=== PATIENT | female | born 1985 | race Hispanic/Latino ===

== ENCOUNTER 2017-04-18 00:16 | Emergency (ER) | payer OTHER ==
[2017-04-18 00:53] LABS: Basophils % (Auto) 0.5 % (0.0-1.8); Eosinophils % (Auto) 3.9 % (0.0-4.3); Hematocrit 42.9 % (30.3-42.9); Hemoglobin 14.3 gm/dl (10.1-14.3); Mean Corpuscular HGB Conc 33 % (30-34); Mean Corpuscular Hemoglobin 29 pg (28-32); Mean Corpuscular Volume 87 fl (79-97); Platelet Count 304 K/mm3 (140-440); Red Blood Count 4.95 M/mm3 (3.65-5.03); Red Cell Distribution Width 15.9 % (13.2-15.2); White Blood Count 9.1 K/mm3 (4.5-11.0)
[2017-04-18 01:12] LABS: Anion Gap 19 mmol/L; BUN/Creatinine Ratio 12; Blood Urea Nitrogen 7 mg/dL (7-17); Calcium 8.8 mg/dL (8.4-10.2); Carbon Dioxide 21 mmol/L (22-30); Chloride 103.9 mmol/L (98-107); Glucose 98 mg/dL (65-100); Potassium 3.8 mmol/L (3.6-5.0); Sodium 140 mmol/L (137-145)
[2017-04-18 01:21] LABS: Urine Drugs of Abuse Note Disclamer
[2017-04-18 01:41] LABS: Bacteria,Urine 1+ /HPF (Negative); Bilirubin,Urine NEG (Negative); Blood,Urine NEG (Negative); Ketones,Urine NEG (Negative); Leukocyte Esterase,Urine NEG (Negative); Mucus,Urine FEW /HPF; Nitrite,Urine NEG (Negative); Protein,Urine <15 mg/dL mg/dL (Negative); Urobilinogen,Urine < 2.0 mg/dL (<2.0)
--- NOTE | 2017-04-18 08:18 | Emergency Department Report ---
ED General Adult HPI - General Chief complaint: Psych Stated complaint: MH Time Seen by Provider: 04/18/17 08:17 Source: patient, EMS (ems notes not available at time of chart dictation), RN notes reviewed Mode of arrival: Ambulatory Limitations: No Limitations - History of Present Illness Initial comments: This is a 31-year-old female who is previously unknown to this provider, patient reports a past history of heroin use, patient last used approximately 24 hours ago, and patient is sent to the ER for medical clearance for presumed heroin withdrawal. Patient complains of abdominal cramping, nausea, weakness. To me, patient denies severe headache, neck pain, chest pain, shortness of breath, urinary symptoms. As per triage nurse documentation, patient does endorse passive suicidality, to me, patient endorses that she is not homicidal, that she does not have access to guns or firearms, and she is not having hallucinations. -: Gradual Location: back, abdomen, left, right, upper extremity, lower extremity Severity scale (0 -10): 0 Quality: aching Consistency: constant Improves with: none Worsens with: eating Associated Symptoms: loss of appetite, nausea/vomiting, weakness. denies: confusion, chest pain, cough - Related Data Allergies Allergy/AdvReac Type Severity Reaction Status Date / Time No Known Allergies Allergy Verified 04/18/17 00:24 ED Review of Systems ROS: Stated complaint: MH Other details as noted in HPI Constitutional: malaise Eyes: denies: eye discharge ENT: denies: epistaxis Respiratory: denies: cough Cardiovascular: denies: chest pain Gastrointestinal: abdominal pain, diarrhea Genitourinary: as per HPI. denies: dysuria Musculoskeletal: arthralgia, myalgia Neurological: weakness Psychiatric: anxiety, depression, suicidal thoughts ED Past Medical Hx - Past Medical History Previous Medical History?: Yes Hx Psychiatric Treatment: Yes (depression) - Surgical History Past Surgical History?: Yes Additional Surgical History: c section x3 - Social History Smoking Status: Current Every Day Smoker Substance Use Type: Alcohol, Heroin ED Physical Exam - General Limitations: No Limitations General appearance: alert, anxious, in distress - Head Head exam: Present: atraumatic, normocephalic - Eye Eye exam: Present: normal appearance, EOMI - ENT ENT exam: Present: normal exam, normal orophraynx, mucous membranes moist, normal external ear exam - Neck Neck exam: Present: normal inspection, full ROM - Respiratory Respiratory exam: Present: normal lung sounds bilaterally. Absent: respiratory distress - Cardiovascular Cardiovascular Exam: Present: regular rate, normal rhythm, normal heart sounds. Absent: systolic murmur, diastolic murmur, rubs, gallop - GI/Abdominal GI/Abdominal exam: Present: soft, normal bowel sounds. Absent: distended, tenderness, guarding, rebound, rigid, pulsatile mass - Extremities Exam Extremities exam: Present: normal inspection, full ROM, normal capillary refill. Absent: calf tenderness - Back Exam Back exam: Present: normal inspection, full ROM. Absent: tenderness, CVA tenderness (R), paraspinal tenderness, vertebral tenderness - Neurological Exam Neurological exam: Present: alert, oriented X3, CN II-XII intact, normal gait, other (Extraocular movements intact. Tongue midline. No facial droop. Facial sensation intact to light touch in the V1, V2, V3 distribution bilaterally. 5 and 5 strength in 4 extremities.. Sensation is intact to light touch in 4 extremities.). Absent: motor sensory deficit - Psychiatric Psychiatric exam: Present: anxious. Absent: homicidal ideation - Skin Skin exam: Present: warm, dry, intact, normal color. Absent: rash ED Course Vital Signs 04/18/17 04/18/17 04/18/17 00:19 05:31 08:06 Temperature 97.6 F 9 F L Pulse Rate 69 72 69 Respiratory 18 18 17 Rate Blood Pressure 107/70 93/61 Blood Pressure 114/72 [Left] O2 Sat by Pulse 97 99 96 Oximetry 04/18/17 04/18/17 04/18/17 08:49 09:07 10:58 Temperature 98.7 F Pulse Rate 75 Respiratory 20 Rate Blood Pressure Blood Pressure 107/70 [Left] O2 Sat by Pulse Oximetry - Reevaluation(s) Reevaluation #1: 04/18/17 09:49 Differential diagnosis, including but not limited to: Narcotic dependence, narcotic withdrawal, mood disorder, suicidality, medical clearance for psychiatric placement Assessment and plan: 31-year-old female here for medical clearance for presumed opioid withdrawal. She is afebrile with reassuring vital signs walks with a steady gait, is clinically sober, has a GCS of 15, with an NIH score of 0. Triage nurse documentation indicate some passive suicidality. She is therefore placed on a 1013. For the patient's symptoms, clonidine, Zofran, Reglan have been prescribed. We will contact the crisis team once the patient has been medically For psychiatric placement. Reevaluation #2: 04/18/17 10:39 Serum toxicology study is negative. At this point in time, there does not appear to be any immediate medical contraindication to psychiatric admission, evaluation and consultation. Crisis team is informed. 04/18/17 10:39 ED Medical Decision Making - Lab Data Result diagrams: 04/18/17 00:37 04/18/17 00:37 Critical care attestation.: If time is entered above; I have spent that time in minutes in the direct care of this critically ill patient, excluding procedure time. ED Disposition Clinical Impression: Medical clearance for psychiatric admission Disposition: [id number] PSY HOSP/PSY UNIT Is pt being admited?: No Does the pt Need Aspirin: No Condition: Good Referrals: PRIMARY CARE, [Primary Care Provider] - 3-5 Days
[2017-04-18] MEDS ORDERED: ZOFRAN ODT PO PRN (08:24)
[2017-04-18] MEDS ORDERED: REGLAN PO PRN (08:24)
[2017-04-18] MEDS ORDERED: ATIVAN IM PRN (08:24)
[2017-04-18] MEDS ORDERED: CATAPRES PO PRN (08:24)
[2017-04-18] MEDS ORDERED: TYLENOL PO PRN (08:24)
[2017-04-18 10:58] VITALS: BP 107/70
--- NOTE | 2017-04-18 14:16 | Consultation ---
History of Present Illness - Reason for Consult Consult date: 04/18/17 Reason for consult: Mental Health Evaluation Requesting physician: CECI LUQUE - Chief Complaint Chief complaint: "I need help" - History of Present Psychiatric Illness 31 y.o. white female presenting to [facility] for heroin withdrawals. Today patient is calm and cooperative during the assessment. The patient stated using heroin for the past 4 year with her last use 24 hours ago. She stated that she is tired of her current life and thinks about suicide often. She denies previous suicide attempts. She stated that her mother , lost her kids to [facility], and experienced bad relationships over the past 4 years. She stated these losses has caused her to feel worthless and hopeless. She stated seeing a psychiatrist a year ago and was dx with depression. She stated that she took Prozac. She stated self medicating with heroin to ease her depression. She denies HI's and AVH's. She denies manic episodes. She denies other recreational drug use and alcohol consumption (etoh). Medications and Allergies Allergies Allergy/AdvReac Type Severity Reaction Status Date / Time No Known Allergies Allergy Verified 04/18/17 00:24 Active Meds: Active Medications Acetaminophen (Tylenol) 650 mg PO Q6HR PRN PRN Reason: Pain Last Admin: 04/18/17 10:53 Dose: 650 mg Lorazepam (Ativan) 2 mg IM Q4HR PRN PRN Reason: Agitation Metoclopramide HCl (Reglan) 10 mg PO QID PRN PRN Reason: Nausea Ondansetron HCl (Zofran Odt) 4 mg PO Q6HR PRN PRN Reason: Nausea Past psychiatric history - Past Medical History Past Medical History: No medical history Past Surgical History: No surgical history - past Psychiatric treatment and history Psych: Addictions, Depression psychiatric treatment history: Seen an psychiatrist in the past (outpatient) for depression. Denies a fam psy hx. - Social History Social history: other (Homeless) Mental Status Exam - Vital signs Last Vital Signs Temp 98.7 F 04/18/17 08:49 Pulse 75 04/18/17 10:58 Resp 20 04/18/17 09:07 BP 107/70 04/18/17 10:58 Pulse Ox 96 04/18/17 08:06 - Exam Narrative exam: MSE: Appearance: calm, cooperative Behavior: regular eye contact Speech: regular rate and tone Mood: withdrawn Affect: flat Thought Process: circumstantial Thought Content: denies HI's and AVH's Motor Activity: ambulatory Cognition: A/Ox3 Insight: variable Judgment: variable Results Result Diagrams: 04/18/17 00:37 04/18/17 00:37 Abnormal lab results 04/18/17 04/18/17 04/18/17 Range/Units 00:37 00:37 00:37 RDW 15.9 H (13.2-15.2) % Carbon Dioxide 21 L (22-30) mmol/L Creatinine 0.6 L (0.7-1.2) mg/dL Total Creatine Kinase < 7 L (30-135) units/L Salicylates (2.8-20.0) mg/dL 04/18/17 Range/Units 00:37 RDW (13.2-15.2) % Carbon Dioxide (22-30) mmol/L Creatinine (0.7-1.2) mg/dL Total Creatine Kinase (30-135) units/L Salicylates < 0.3 L (2.8-20.0) mg/dL All other labs normal. Assessment and Plan Assessment and plan: Impression: MDD. Opioid Use DO. Today patient is calm and cooperative during the assessment. Patient experiencing nausea and body aches. Patient experiencing suicidal thoughts. DDx: R/O Bipolar DO Recommendation/Plan: Continue 1013 with placement to [facility] today.
== END 2017-04-18 14:32 ==
LOC: ED 00:16
DX: F11.10 Opioid abuse, uncomplicated (principal); F32.9 Major depressive disorder, single episode, unspecified; Z79.899 Other long term (current) drug therapy
CPT/HCPCS: 36415; 80048; 80307; 81001; 82550; 84703; 85025; 99285; G0480; 80320